=== PATIENT | female | born 1985 | race Caucasian/White ===

== ENCOUNTER → 2021-01-14 14:10 | Outpatient (CLI) | payer OTHER, MEDICAID, SELFPAY ==
--- NOTE | 2021-01-14 14:14 | DI.US.S_ITS ---
PROCEDURE: US PELVIC COMPLETE INDICATIONS: DUB TECHNIQUE: Real-time scanning was performed of the pelvic organs, with image documentation. Additional endovaginal scanning was necessary due to incomplete visualization of the adnexal and endometrial structures by transabdominal scanning. COMPARISON: None. FINDINGS: Uterus: Uterus is normal in size at 9.0 x 4.8 x 6.6 cm. The endometrium measures 1 mm in combined thickness. Ovaries: Right ovary measures 4.2 x 1.6 x 2.1 cm. Left ovary measures 5.0 x 2.5 cm. There are simple appearing follicle measuring 2.1 x 1.7 x 2.0 cm in the right ovary. 2.8 x 1.9 x 2.5 cm solid versus complex cystic appearing left ovarian lesion with internal echoes and no vascularity, technically nonspecific. Other: No pathologic free abdominal or pelvic fluid. IMPRESSION: Nonspecific solid versus complex cystic left ovarian lesion, technically indeterminate etiology. Recommend follow-up pelvic ultrasound in 6-12 weeks to document resolution and exclude neoplastic etiologies. Normal appearance of the uterus. Dictated by: Reymundo Venegas M.D. on 01/14/2021 at 17:01 Approved by: Reymundo Venegas M.D. on 01/14/2021 at 17:05
== END ==
PROVIDERS: PCP Registered Nurse Diabetes Educator; Referring Provider Registered Nurse Diabetes Educator; Visit Provider Registered Nurse Diabetes Educator
DX: N92.1 Excessive and frequent menstruation with irregular cycle (principal); N83.9 Noninflammatory disorder of ovary, fallopian tube and broad ligament, unspecified
CPT/HCPCS: 76830; 76856

== ENCOUNTER → 2021-01-21 12:07 | Outpatient (CLI) | payer OTHER, MEDICAID, SELFPAY ==
--- NOTE | 2021-01-21 12:09 | DI.MRI.S_ITS ---
PROCEDURE: MR PELVIS WO/W CON INDICATIONS: left ovarian mass per US TECHNIQUE: Coronal HASTE, sagittal breath-hold T2 FSE; axial T1 FSE with and without fat saturation through the pelvis. Optional long- and short-axis uterine nonbreath-hold T2 FSE through the uterus. Sagittal or axial dynamic VIBE during administration of contrast. Post-contrast axial or coronal VIBE/2-D FLASH with fat saturation from the iliac crests to the symphysis. Optional diffusion weighted imaging and ADC may be performed. COMPARISON: [facility], US, US PELVIC COMPLETE, 01/14/2021, 14:37. FINDINGS: Image quality: Excellent. Uterus: Uterus is normal in size. Endometrium is normal in thickness. The uterus is anteverted. Junctional zone is normal in thickness at 12 mm or less. Adnexa: Both ovaries are well visualized and the right ovary appears normal in size, without suspicious cystic or solid lesions. The left ovary posteriorly contains an ovoid homogeneous cystic structure measuring up to 2.9 cm AP, 2.5 cm transverse and 2.2 cm craniocaudad. This has elevated T2 signal, and shows elevated signal on fat suppressed T1 imaging with subsequent contrast infusion fat suppressed T1 imaging showing no significant contrast enhancement within. The appearance is likely that of a proteinaceous cyst. More anteriorly at the left ovary in the area of sonographic concern for possible solid mass no discrete lesion credit representative of that structure can be seen. Rather, there appears to be an involuting cyst in its expected position seen on series 21, image 72, with low signal intensity immediately ventral to the high-signal intensity of the more posterior cyst. Currently that structure measures approximately 1.6 x 2.0 cm. Urinary system: Bladder wall is normal in thickness. Distal ureters are non distended. Urethra appears normal in morphology. Nodes and vessels: No pelvic or inguinal adenopathy by size criteria. Iliac vessels are normal in size. Bowel and peritoneum: No pathologic free pelvic fluid. Inferior colon and small bowel loops are normal in caliber. Soft tissues: No inguinal hernias. No findings of pelvic floor incompetence in the absence of provocation. Bones: Marrow demonstrates normal overall signal. IMPRESSION: A proteinaceous cyst persists at the posterior left ovary, sharply demarcated without enhancement. More anteriorly by ultrasound a larger complex structure suspicious for representing a solid lesion appears to have been replaced by a crenulated periphery involuting left ovarian cyst. Follow-up pelvic ultrasound in 6-8 weeks is recommended to ensure complete resolution. Dictated by: Jerry Pinto M.D. on 01/21/2021 at 14:38 Approved by: Jerry Pinto M.D. on 01/21/2021 at 14:50
== END ==
PROVIDERS: PCP Registered Nurse Diabetes Educator; Referring Provider Registered Nurse Diabetes Educator; Visit Provider Registered Nurse Diabetes Educator
DX: N83.202 Unspecified ovarian cyst, left side (principal)
CPT/HCPCS: 72197

== ENCOUNTER → 2021-03-24 07:44 | Outpatient (CLI) | payer OTHER, MEDICAID, SELFPAY ==
[2021-03-24 08:25] LABS: Hematocrit 39.1 % (36-46); Mean Corpuscular HGB Conc 33.2 % (30-36); Mean Corpuscular Hemoglobin 31.5 PG (26-34); Mean Corpuscular Volume 94.9 fL (80-100); Platelet Count 257 X10^3/uL (150-400); Red Blood Cell Count 4.12 X10^6/uL (4.0-5.2); Red Cell Distribution Width 13.3 % (11.6-14.8); White Blood Cell Count 4.1 X10^3/uL (4.5-11.0)
[2021-03-24 08:56] LABS: Alanine Aminotransferase 24 IU/L (<35); Albumin 4.2 g/dL (3.5-5.0); Albumin Globulin Ratio 1.5 (1.0-2.8); Alkaline Phosphatase 45 U/L (38-126); Aspartate Aminotransferase 33 IU/L (14-36); BUN Creatinine Ratio 21.5 (6-22); Bilirubin Total 1.4 mg/dL (0.2-1.3); Blood Urea Nitrogen 17 mg/dL (7-17); Calcium 9.5 mg/dL (8.4-10.2); Carbon Dioxide 30 mmol/L (22-32); Chloride 102 mmol/L (98-107); Cholesterol 180 mg/dL (140-199); Estimated Glomerular Filt Rate > 60.0 mL/min (>60); Globulin 2.8 g/dL (1.7-4.1); Glucose 90 mg/dL (70-100); HEMOLYSIS < 15 (0-50); Potassium 3.9 mmol/L (3.4-5.1); Sodium 137 mmol/L (137-145); Triglycerides 61 mg/dL (35-150)
[2021-03-24 09:06] LABS: HDL Cholesterol 114 mg/dL (40-60); LDL Cholesterol Calculated 54 mg/dL (<100)
[2021-03-24 09:22] LABS: TSH w/ Reflex to FT4 2.33 uIU/mL (0.47-4.68)
== END ==
PROVIDERS: PCP Registered Nurse Diabetes Educator; Referring Provider Registered Nurse Diabetes Educator; Visit Provider Registered Nurse Diabetes Educator
DX: R53.83 Other fatigue (principal); Z00.00 Encounter for general adult medical examination without abnormal findings
CPT/HCPCS: 36415; 80053; 80061; 84443; 85027

== ENCOUNTER → 2021-04-02 14:43 | Outpatient (CLI) | payer OTHER, MEDICAID, SELFPAY ==
--- NOTE | 2021-04-02 14:44 | DI.US.S_ITS ---
PROCEDURE: US PELVIC COMPLETE INDICATIONS: F/U ovarian cysts TECHNIQUE: Real-time scanning was performed of the pelvic organs, with image documentation. Additional endovaginal scanning was necessary due to incomplete visualization of the adnexal and endometrial structures by transabdominal scanning. COMPARISON: [facility], MR, MR PELVIS WO/W CON, 01/21/2021, 12:35. [facility], US, US PELVIC COMPLETE, 01/14/2021, 14:37. FINDINGS: Uterus: Uterus is normal in size at 6.2 x 5.3 x 4.5 cm. The endometrium measures 4 mm in combined thickness. Ovaries: The right ovary measures 3.3 x 2.2 x 1.9 cm. The left ovary measures 4.2 x 3.3 x 1.6 cm and demonstrates a well-circumscribed isoechoic nonvascular focus with in it that measures 2.2 x 2 x 1.5 cm. On the prior ultrasound this measured 2.8 x 1.9 x 2.5 cm. Multiple punctate echogenic foci can be seen involving the left ovary, which are likely related to benign calcifications. The ovaries otherwise have a normal sonographic appearance. No adnexal masses are seen. Other: A mild amount of free pelvic fluid is seen, which is considered to be within physiologic limits. Limited scanning through the kidneys shows no hydronephrosis. IMPRESSION: Interval decrease in size of the left ovarian lesion, which is likely related to a resolving hemorrhagic cyst. Dictated by: Aaron George M.D. on 04/03/2021 at 15:41 Approved by: Aaron Goerge M.D. on 04/03/2021 at 15:44
== END ==
PROVIDERS: PCP Registered Nurse Diabetes Educator; Referring Provider Obstetrics & Gynecology; Visit Provider Obstetrics & Gynecology
DX: N83.209 Unspecified ovarian cyst, unspecified side (principal)
CPT/HCPCS: 76830; 76856

== ENCOUNTER → 2021-07-12 11:50 | Outpatient (CLI) | payer OTHER, MEDICAID, SELFPAY ==
--- NOTE | 2021-07-12 11:51 | DI.US.S_ITS ---
PROCEDURE: US PELVIC COMPLETE INDICATIONS: FOLLOW-UP LEFT OVARIAN CYST TECHNIQUE: Real-time scanning was performed of the pelvic organs, with image documentation. Additional endovaginal scanning was necessary due to incomplete visualization of the adnexal and endometrial structures by transabdominal scanning. COMPARISON: [facility], US, US PELVIC COMPLETE, 04/02/2021, 15:04. FINDINGS: Uterus: Uterus is normal in size at 8.2 x 4.0 x 5.7 cm. The endometrium measures 4.2 mm in combined thickness. Ovaries: Right left ovaries measure 4.0 x 1.3 x 1.8 cm and 3.6 x 1.8 x 2.4 cm respectively. There is a 1.2 x 1.1 x 1.6 cm hypoechoic cyst in the left ovary previously measuring 2.2 x 2.0 x 1.5 cm Other: No pathologic free abdominal or pelvic fluid. IMPRESSION: Continued improvement of left ovarian hemorrhagic cyst Approved by: Sam Zhao M.D. on 07/12/2021 at 13:36
== END ==
PROVIDERS: PCP Registered Nurse Diabetes Educator; Referring Provider Obstetrics & Gynecology; Visit Provider Obstetrics & Gynecology
DX: N83.202 Unspecified ovarian cyst, left side (principal)
CPT/HCPCS: 76830; 76856